=== PATIENT | male | born 1950 | race Caucasian/White ===

== ENCOUNTER → 2017-01-04 | Outpatient (CLI) | payer OTHER ==
[~2017-01-04] MED LIST: GADOBUTROL 10 ML VIAL IVP ONE
== END ==
LOC: FIMAGING 13:21
PROVIDERS: ATTEND Internal Medicine Hematology & Oncology
DX: C76.0 Malignant neoplasm of head, face and neck (principal)
CPT/HCPCS: 70553; A9585

== ENCOUNTER → 2017-01-05 | Outpatient (CLI) | payer OTHER | LOC: BHFA 14:00 | PROVIDERS: ATTEND Internal Medicine Cardiovascular Disease | DX: R60.9 Edema, unspecified (principal) ==

== ENCOUNTER → 2017-01-19 | Outpatient (CLI) | payer OTHER | LOC: FIMAGING 09:46 | PROVIDERS: ATTEND Internal Medicine Hematology & Oncology | DX: R60.0 Localized edema (principal); R79.1 Abnormal coagulation profile; Z85.89 Personal history of malignant neoplasm of other organs and systems ==

== ENCOUNTER 2017-02-03 07:12 | Day surgery (SDC) | payer OTHER ==
[2017-02-03] MEDS ORDERED: NS 1,000 ML IV SCH (08:00)
[2017-02-03 08:06] LABS: HEMATOCRIT 43.1 % (40.0-51.0)
[2017-02-03 08:16] LABS: INR 1.01 (0.83-1.16); PROTIME(PATIENT) 13.2 SEC (12.0-15.0)
[2017-02-03 08:17] LABS: APTT 30.4 SEC (23.0-38.0)
[2017-02-03] MEDS ORDERED: LIDOCAINE 1% 300 MG/30 ML SDV ONE (08:25)
[2017-02-03] MEDS ORDERED: FLUMAZENIL 0.5 MG/5 ML MDV IVP ONE (08:27)
[2017-02-03] MEDS ORDERED: NALOXONE HCL 0.4 MG/ML INJ ONE (08:27)
[2017-02-03] MEDS ORDERED: MIDAZOLAM 2 MG/2 ML VIAL ONE (08:27)
[2017-02-03] MEDS ORDERED: fentaNYL 100 MCG/2 ML INJ ONE (08:27)
[2017-02-03] MEDS ORDERED: HYDROCODONE/APAP 5/325 TAB ONE (10:50)
== END 2017-02-03 15:35 | disposition home or self-care (01) ==
LOC: FIMAGING 07:12
PROVIDERS: ATTEND Radiology Diagnostic Radiology
DX: C78.02 Secondary malignant neoplasm of left lung (principal); C10.9 Malignant neoplasm of oropharynx, unspecified; Z87.891 Personal history of nicotine dependence
CPT/HCPCS: J2250; J2310; J3010